=== PATIENT | male | born 1990 | race African-American/Black ===

== ENCOUNTER 2020-08-14 17:45 | Inpatient (IN) | payer SELFPAY ==
[~2020-08-14] VITALS: Ht 190.5 cm; Wt 140.2 kg
--- NOTE | 2020-08-14 18:12 | NUR ---
[facility] CALLED FOR TRANSPORT OF COVID SWAB TO MAIN ER.CALLED ER MAIN LAB AND SPOKE TO LADY NAMED SABAS, STATES UNDERSTANDING OF IMPORTANCE FOR RAPID COVID TESTING TO R/O TRANSFER.
[2020-08-14] MEDS ORDERED: ACETAMINOPHEN 325 MG TAB PO ONE (18:15)
--- NOTE | 2020-08-14 18:17 | NUR ---
XRAY DONE, PT MEDICATED.
[2020-08-14] MEDS ORDERED: SODIUM CHLORIDE 0.9% 1000ML 1,000 ML IV STA ×2 (18:35→18:40)
[2020-08-14] MEDS ORDERED: CEFEPIME 1GM/NS 0.9% 50 ML 50 ML IV STA (18:39)
[2020-08-14] MEDS ORDERED: METHYLPREDNISOLONE SOD SUCC 125 MG/2ML VIAL IV ONE (18:45)
[2020-08-14] MEDS ORDERED: AZITHROMYCIN 500MG/NS 250 ML 250 ML IV ONE (18:45)
[2020-08-14] MEDS ORDERED: CEFTRIAXONE SOD 1 GM/NS 50 ML 50 ML IV ONE (18:45)
[2020-08-14] MEDS ORDERED: METHYLPREDNISOLONE SOD SUCC 125 MG/2ML VIAL ONE ×2 (18:55→19:04)
[2020-08-14] MEDS ORDERED: SODIUM CHLORIDE 0.9% 1000ML 1,000 ML ONE (18:55)
[2020-08-14] MEDS ORDERED: AZITHROMYCIN ONE (18:55)
[2020-08-14] MEDS ORDERED: [UNRECOGNIZED DRUG - OTHER] ONE (18:55)
[2020-08-14] MEDS ORDERED: CEFEPIME 1GM/NS 0.9% 50 ML 50 ML IV ONE ×2 (18:55→19:05)
[2020-08-14] MEDS ORDERED: SODIUM CHLORIDE 0.9% 1000ML 2,000 ML ONE (19:05)
[2020-08-14] MEDS ORDERED: AZITHROMYCIN 500MG/NS 250 ML 250 ML ONE (19:05)
--- NOTE | 2020-08-14 19:14 | Emergency Department Note ---
History of Present Illnes History of Present Illness Chief Complaint: cough up mild blood/ cp when coughing History of Present Illness This is a 30 year old male. was doing well until 2 days ago then diarrhea, f/c, then cough/congestion then cp when coughing Historian: Patient, Family Member Arrival Mode: Car History limited by: condition of the patient (normal) Reel Assembler Required: No Onset (how long ago): day(s) (2) Location: see above Quality: sharpp Radiation: Reports non-radiation Severity: moderate Onset quality: gradual Duration (how long): day(s) (2) Timing of current episode: intermittent Progression: unchanged Chronicity: new Context: Denies recent illness, Denies recent surgery, Denies recent immobilization, Denies recent travel, Denies trauma/injury, Denies new medications, Denies hx of DVT/PE, Denies non-compliance w/ medications Relieving factors: rest Exacerbating factors: other (coughing) Associated symptoms: Reports chest pain, Reports cough, Reports fever/chills, Reports headaches, Reports malaise; Denies nausea/vomiting, Denies rash, Denies seizure, Denies shortness of breath, Denies syncope, Denies weakness Treatments prior to arrival: none Past Medical/Family History Physician Review I have reviewed the patient's past medical and family history. Any updates have been documented here. Past Medical History Recent Fever: Yes Clinical Suspicion of Infectio: Yes New/Unexplained Change in Ment: No Past Medical History: None Past Surgical History: None Social History Smoking Cessation: Current some day smoker Counseling Performed: No Alcohol Use: Occasional Any Illegal Drug Use: Yes (THC) Physically hurt or threatened: No Other Any Pre-Existing Lines (PICC,: No Review of Systems Review of Systems Constitutional: Reports as per HPI EENTM: Reports no symptoms Cardiovascular: Reports as per HPI Respiratory: Reports as per HPI Gastrointestinal: Reports no symptoms Genitourinary: Reports no symptoms Musculoskeletal: Reports no symptoms Integumentary: Reports no symptoms Neurological: Reports no symptoms Psychological: Reports no symptoms Endocrine: Reports no symptoms Hematological/Lymphatic: Reports no symptoms Review of other systems: All other systems negative Physical Exam Related Data Allergies: Coded Allergies: No Known Allergies (Unverified , 08/14/20) Triage Vital Signs Vital Signs Date Time Temp Pulse Resp B/P (MAP) Pulse Ox O2 Delivery O2 Flow Rate FiO2 11/22/20 18:01 102.2 115 22 166/82 96 Room Air Vital signs reviewed: Yes Physical Exam CONSTITUTIONAL Constitutional: Present well-developed, Present well-nourished HENT HENT: Present normocephalic, Present atraumatic, Present mucosae dry, Present nose normal HENT L/R: Present left ext ear normal, Present right ext ear normal EYES Eyes: Reports PERRL, Reports conjunctivae normal NECK Neck: Present ROM normal PULMONARY Pulmonary: Present effort normal, Present rhonchi CARDIOVASCULAR Cardiovascular: Present regular rhythm, Present heart sounds normal, Present capillary refill normal, Present tachycardia GASTROINTESTINAL Abdominal: Present soft, Present nontender, Present bowel sounds normal GENITOURINARY Genitourinary: Present exam deferred SKIN Skin: Present warm, Present dry MUSCULOSKELETAL Musculoskeletal: Present ROM normal NEUROLOGICAL Neurological: Present alert, Present oriented x 3, Present no gross motor or sensory deficits PSYCHOLOGICAL Psychological: Present mood/affect normal, Present judgement normal Results Laboratory Laboratory Laboratory Tests Test 08/14/20 18:00 Lab results reviewed: Yes Laboratory comments CBC NORMAL EXCEPT WBC 19, CMP NORMAL, CARDIAC ENZYMES NORMAL, BNP NORMAL, D DIMER ELEVATED Imaging Imaging results reviewed: Yes Impressions [place] [address] Patient Name: EDWIGE DOUGLASS MR #: [id number] : 1990 Age/Sex: 30/M Req #: [id number] Adm Physician: Ordered by: ROBERTO MCGOVERN Report #: [id number] Location: [facility] Room/Bed: Procedure: [id number] HOPD/CXR 1 VEW - HOPD Exam Date: 08/14/20 Exam Time: 1825 REPORT STATUS: Signed EXAMINATION: CXR 1 VEW - HOPD INDICATION: ^SOB COMPARISON: FINDINGS: Low lung volumes accentuates the heart size and central interstitial pulmonary markings. Hazy density at the right costophrenic angle. Left lung is clear. No pleural effusion. No pneumothorax. IMPRESSION: Low lung volumes. Hazy density at the right costophrenic angle could represent atelectasis or developing infection. Signed by: Naif Blanton MD on 08/14/2020 7:40 PM Dictated By: NAIF BLANTON MD 39 Transcribed By: JUDE on 08/14/201939 COPY TO: ROBERTO MCGOVERN~ Procedures 12 Lead ECG Interpretation ECG Interpretation : ECG: ECG 1 Reel Assembler: Interpreted by ED physician Date: Aug 14, 2020 Time: 19:59 Prior ECG tracings: reviewed Rhythm: sinus rhythm (NSR) Rate: normal BPM: 87 QRS axis: normal ST segments normal: Yes T waves normal: Yes Clinical Impression: normal ECG Critical Care Time Comments SPOKE TO DR SAWYER AT 2010HRS AND ACCEPTS ADMISSION OF PT Assessment & Plan Medical Decision Making MDM SEE BELOW Assessment & Plan Final Impression: (1) Sepsis (2) Pneumonia (3) Dehydration Depart Disposition: ADMITTED Last Vital Signs Date Time Temp Pulse Resp B/P (MAP) Pulse Ox O2 Delivery O2 Flow Rate FiO2 08/14/20 18:01 102.2 115 22 166/82 96 Room Air Medications in the ED Acetaminophen 975 mg ONCE ONCE PO Last administered on 08/14/20at 18:13; Admin Dose 975 MG; Start 08/14/20 at 18:15; Stop 08/14/20 at 18:16; Status DC Ceftriaxone Sodium 50 ml @ 100 mls/hr ONCE ONCE IV ; Start 08/14/20 at 18:45; Stop 08/14/20 at 18:40; Status DC Azithromycin 250 ml @ 250 mls/hr NOW ONCE IV ; Start 08/14/20 at 18:45; Stop 08/14/20 at 19:44; Status UNV Methylprednisolone Sodium Succinate 250 mg ONCE ONCE IV ; Start 08/14/20 at 18:45; Stop 08/14/20 at 18:46; Status DC Sodium Chloride 1,000 ml @ 1,000 mls/hr Q1H STAT IV ; Start 08/14/20 at 18:35; Stop 08/14/20 at 19:34 Cefepime HCl 50 ml @ 100 mls/hr ONCE STAT IV ; Start 08/14/20 at 18:39; Stop 08/14/20 at 19:08; Status UNV Sodium Chloride 1,000 ml @ 1,000 mls/hr Q1H STAT IV ; Start 08/14/20 at 18:40; Stop 08/14/20 at 19:39 Methylprednisolone Sodium Succinate 125 mg STK-MED ONCE .ROUTE ; Start 08/14/20 at 18:55; Stop 08/14/20 at 18:49; Status DC Sodium Chloride 2,000 ml @ ud STK-MED ONCE .ROUTE ; Start 08/14/20 at 18:55; Stop 08/14/20 at 18:49; Status DC Methylprednisolone Sodium Succinate 125 mg STK-MED ONCE .ROUTE ; Start 08/14/20 at 19:04; Stop 08/14/20 at 18:58; Status DC Sodium Chloride 2,000 ml @ ud STK-MED ONCE .ROUTE ; Start 08/14/20 at 19:05; Stop 08/14/20 at 18:58; Status DC ROBERTO MCGOVERN Aug 14, 2020 19:14
--- NOTE | 2020-08-14 19:35 | NUR ---
SEPSIS SHEET DONE AND ON CHART PER PROTOCOL.
--- NOTE | 2020-08-14 19:37 | NUR ---
ETA OF COVID RESULT 25 MINS PER [facility]ISS THAO IN LAB.
--- NOTE | 2020-08-14 19:43 | Diagnostic Imaging Report ---
EXAMINATION: CXR 1 W - HOP INDICATION: ^SOB COMPARISON: FINDINGS: Low lung volumes accentuates the heart size and central interstitial pulmonary markings. Hazy density at the right costophrenic angle. Left lung is clear. No pleural effusion. No pneumothorax. IMPRESSION: Low lung volumes. Hazy density at the right costophrenic angle could represent atelectasis or developing infection. Signed by: Bernabe Hernandez MD on 08/14/2020 7:40 PM
[2020-08-14] MEDS ORDERED: VANCOMYCIN 1GM/NS 250 ML 250 ML IV ONE ×2 (20:15→20:30)
[2020-08-14] MEDS ORDERED: IOPAMIDOL 370 MG/ML 200 ML INFUS..BTL INJ ONE (20:27)
[2020-08-14] MEDS ORDERED: SODIUM CHLORIDE 0.9% 50ML 50 ML ONE (20:27)
[2020-08-14] MEDS ORDERED: ONDANSETRON HCL INJ 2MG/ML 2ML 2 MG/ML VIAL IV PRN (20:30)
--- NOTE | 2020-08-14 20:30 | NUR ---
[facility] notified of transfer to [facility], eta 30-45 minutes
--- OUTSIDE RECORDS SUMMARY | 2020-08-14 20:58 | XMS REPORT | Continuity of Care Document ---
Author Author [facility] t Organization [facility] Address [address] [place] [address] Dr. Horn [address] [place] [phone] Phone Unavailable Care Team Providers Care Plug Assembler Name Role Phone Kristen MCGOVERN Attphys Unavailable Problems This patient has no known problems. Allergies, Adverse Reactions, Alerts This patient has no known allergies or adverse reactions. Medications This patient has no known medications. Procedures This patient has no known procedures. Results Test Description Test Time Test Comments Results Result Comments Source CXR 1 VEW - HOPD 2020-08-14 19:35:00 [facility] 1990 Sex: M [facility] [address] [place] [address] Patient Name: EDWIGE DOUGLASS MR #: [id number] : 1990 Age/Sex: 30/M Req #: [id number] [facility] Physician: Ordered by: ROBERTO MCGOVERN Report #: [id number] Location: [facility] Room/Bed: Procedure: [id number] [facility] Ex[facility] Date: 08/14/20 Exam Time: 1825 REPORT STATUS: Signed EXAMINATION: CXR 1 [facility] INDICATION: SOB COMPARISON: FINDINGS: Low lung volumes accentuates the heart size and central interstitial pulmonary markings. Hazy density at the right costophrenic angle. Left lung is clear. No pleural effusion. No pneumothorax. IMPRESSION: Low lung volumes. Hazy density at the right costophrenic angle could represent atelectasis or developing infection. Signed by: Naif Blanton MD on 08/14/2020 7:40 PM Dictated By: NAIF BLANTON MD 39 Transcribed By: JUDE on 08/14/201939 COPY TO: ROBERTO MCGOVERN CT Spine Lumbar w/o Contrast 2018-05-16 16:03:40 Patient: EDWIGE DOUGLASS Date/Time05/16/2018 15:49 CDTReason for ExamInjuryReportCT OF THE LUMBAR SPINE WITHOUT CONTRASTHISTORY: InjuryTECHNIQUE:Axial images of the lumbar spine were performed and reformatted into sagittal and coronal images. These were reviewed in bone and soft tissue windows. One or more of the following dose reduction techniques were used: Automated exposure control, adjustment of the mA and/or kV according to patient size, and/or utilization of iterative reconstruction technique.COMPARISON: None availableFINDINGS:There is an acute fracture of the right L1 transverse process (series 3, image 24). Vertebral body heights and disc spaces are preserved. No soft tissue abnormality is seen.Axial images:T12-L1: No significant abnormalityL1-L2: No significant abnormality.L2-L3: No significant abnormality.L3-L4: No significant abnormality.L4-L5: No significant abnormality.L5-S1: No significant abnormality.Incidental findings of hepatic steatosis and a small appendicolith are noted. There is no CT evidence of acute appendicitis.IMPRESSION:Minimally displaced fracture of the right L1 transverse process.Location: R16 Final Dictated by: MD Seals Adam FDictated DT/TM: 05/16/2018 3:57 pmSigned by: MD Selas Adam FSigned (Electronic Signature): 05/16/2018 4:03 pm XR Foot 2 Views Left 2018-05-16 15:44:38 Patient : EDWIGE DOUGLASS Date/Time05/16/2018 15:39 CDTReason for ExamInjuryReportXR Foot 2 Views LeftCLINICAL INFORMATION: InjuryCOMPARISONS: None available.FINDINGS:PA, lateral, and oblique images of the left foot were submitted.No acute fracture or malalignment is identified. The joint spaces are maintained. The soft tissues are unremarkable.IMPRESSION:No fracture or malalignment is identified.Location: R16 Final Dictated by: MD Seals Adam FDictated DT/TM: 05/16/2018 3:42 pmSigned by: MD Seals Adam FSigned (Electronic Signature): 05/16/2018 3:44 pm XR Tibia/Fibula Right 2018-05-16 15:43:40 Patien t: EDWIGE DOUGLASS Date/Time05/16/2018 15:39 CDTReason for ExamInjuryReportXR Tibia/Fibula RightCLINICAL INFORMATION: InjuryCOMPARISONS: None available.FINDINGS:AP and lateral images of the tibia and fibula were submitted.No acute fracture or malalignment is identified. Smooth cortical thickening is seen laterally at the distal tibial metadiaphysis. The soft tissues are unremarkable.IMPRESSION:No acute fracture or malalignment.Location: R16 Final Dictated by: MD Seals Adam FDictated DT/TM: 05/16/2018 3:41 pmSigned by: MD Seals Adam FSigned (Electronic Signature): 05/16/2018 3:43 pm
[2020-08-14] MEDS ORDERED: VANCOMYCIN HCL 2 GM in SODIUM CHLORIDE 0.9% 500ML 500 ML IV ONE (21:00)
[2020-08-14 21:45] VITALS: BP_SYST 128; BP_SYST 152; BP_DIAS 68; BP_DIAS 92
--- NOTE | 2020-08-14 22:03 | Diagnostic Imaging Report ---
EXAM: CT Chest WITH contrast (PE Protocol) INDICATION: ^cp/hemoptysis r/o pe ^20200814 ^2049 COMPARISON: None TECHNIQUE: Chest was scanned utilizing a multidetector helical scanner from the lung apex through the level of the diaphragm after administration of IV contrast. Thin section reconstructions were obtained with special concentration on the pulmonary arteries. Coronal and sagittal reformations were obtained. Pulmonary embolism protocol was performed. IV CONTRAST: 100 mL of Omnipaque 350 COMPLICATIONS: None FINDINGS: LINES/ TUBES: None. LUNGS AND AIRWAYS: Suboptimal evaluation for pulmonary emboli due to poor opacification of the pulmonary arteries. There is likely no large central pulmonary embolism. There is a 4.4 cm thick walled cavitary lesion at the left lower lobe. There is a 3.6 cm cavitary lesion at the right lower lobe. There is a 2.3 cm cavitary lesion in the superior segment of the right lower lobe. PLEURA: The pleural spaces are clear. HEART AND MEDIASTINUM: The thyroid gland is normal. No mediastinal, hilar or axillary lymphadenopathy. The heart is normal in size. There is no pericardial effusion. . Main pulmonary artery measures cm in diameter and the ascending aorta measures cm. UPPER ABDOMEN: Hepatic steatosis. BONES: The visualized bony thorax is within normal limits. SOFT TISSUES: Unremarkable. IMPRESSION: 1. Suboptimal evaluation for pulmonary emboli due to poor opacification of the pulmonary arteries. There is likely no large central pulmonary embolus. 2. Multiple bilateral lower lobe peripheral thick-walled cavitary lesions measuring up to 4.4 cm concerning for septic emboli. Other etiologies including sequelae of vasculitis, cavitary pneumonia, and malignancy also possible. Recommend follow-up until resolution. Signed by: Bernabe Hernandez MD on 08/14/2020 9:59 PM
--- NOTE | 2020-08-14 22:05 | NUR ---
Patient received via stretcher from ER. AAO x 4. Patient had no complaints of pain. Respirations even and non-labored. Admission history obtained. Initial physical assessment performed. IVF infusing at 150 cc/hr. Telemetry in place with continuous pulse oximetry. Patient oriented to room, call light and plan of care. Safety measures implemented. Patient instructed to call for assistance when needed. Call light within reach.
[2020-08-14] MEDS: FAMOTIDINE 20 MG/2 ML VIAL IV SCH (22:30)
[2020-08-14] MEDS ORDERED: VANCOMYCIN 1GM/NS 250 ML 500 ML ONE (22:42)
[2020-08-14] MEDS ORDERED: SODIUM CHLORIDE 0.9% 500ML 500 ML ONE (22:43)
[2020-08-14] MEDS: SODIUM CHLORIDE 0.9% 1000ML 1,000 ML IV SCH (23:33)
[2020-08-15] VITALS (7 sets, daily range): BP systolic 126–144; BP diastolic 68–85
[2020-08-15] MEDS ORDERED: SIMETHICONE 80 MG CHEW PO PRN (00:15)
[2020-08-15] MEDS ORDERED: CHLORASEPTIC SPRAY 177 ML BTL MM PRN (00:15)
[2020-08-15] MEDS ORDERED: DOCUSATE SODIUM 100 MG CAP PO PRN (00:15)
[2020-08-15] MEDS ORDERED: POLYETHYLENE GLYCOL 3350 17 GM PACK PO PRN (00:15)
[2020-08-15] MEDS ORDERED: HYDRALAZINE HCL 20 MG/ML VIAL IV PRN (00:15)
[2020-08-15] MEDS ORDERED: POTASSIUM CHLORIDE 20 MEQ TAB CR PO PRN (00:15)
[2020-08-15] MEDS ORDERED: MELATONIN 5 MG TABLET PO PRN (00:15)
[2020-08-15] MEDS ORDERED: DEXTROSE 50% SYRINGE 50 ML IV PRN (00:15)
[2020-08-15] MEDS: SODIUM CHLORIDE 0.9% 1000ML 1,000 ML IV SCH ×4 (06:03→21:05)
--- NOTE | 2020-08-15 06:34 | NUR ---
Dr. Guillen paged regarding "Routine Consult". Reason: PNA. Spoke to Татьяна. Awaiting call back.
--- NOTE | 2020-08-15 07:00 | NUR ---
ASSUMED CARE. AAOX3. ACYANOTIC. NO DISTRESS NOTED. CALL LIGHT IN REACH. SIDE RAILS UP X2. BED LOW AND LOCKED.
--- NOTE | 2020-08-15 07:00 | NUR ---
Patient resting comfortably. Shift report given to oncoming nurse regarding patient's status.
[2020-08-15 07:11] LABS: BASOPHILS % 0.2 % (0.0-1.0); HEMATOCRIT 44.9 % (38.2-49.6); LYMPHOCYTES # (AUTO) 1.2 (1.0-3.2); MEAN CORPUSCULAR HEMOGLOBIN 26.8 pg (28-32); MEAN CORPUSCULAR HGB CONC 33.4 g/dL (31-35); MEAN CORPUSCULAR VOLUME 80.2 fL (81-99); MONOCYTES # (AUTO) 0.6 (0.2-0.8); MONOCYTES % 3.6 % (4.4-11.3); NEUTROPHILS # (AUTO) 15.1 (2.1-6.9); NEUTROPHILS % 88.4 % (38.7-80.0); PLATELET COUNT 195 x10e3/uL (140-360)
[2020-08-15 07:29] LABS: CREATINE KINASE 400 IU/L (30-200)
[2020-08-15 07:50] LABS: ANION GAP 15.1 mmol/L (8-16); BLOOD UREA NITROGEN 10 mg/dL (7-26); BUN/CREATININE RATIO 10 (6-25); CALCIUM 8.8 mg/dL (8.4-10.2); CARBON DIOXIDE 23 mmol/L (22-29); CHLORIDE 105 mmol/L (98-107); CHOL/HDL RATIO 3.4 (3.9-4.7); CHOLESTEROL 125 MD/DL (0-199); CREATININE, SERUM 1.01 mg/dL (0.72-1.25); EST GLOMERULAR FILTRATION RATE > 60 ML/MIN (60-); GLUCOSE 170 mg/dL (74-118); HDL CHOLESTEROL 37 MG/DL (40-60); LDL CHOLESTEROL 73 MG/DL (60-130); POTASSIUM 4.1 mmol/L (3.5-5.1); SODIUM 139 mmol/L (136-145); TRIGLYCERIDES 77 MG/DL (0-149)
[2020-08-15] MEDS: CEFEPIME 1GM/NS 0.9% 50 ML 50 ML IV SCH ×2 (07:59→21:05)
[2020-08-15] MEDS: PANTOPRAZOLE SOD 40 MG TABEC PO SCH (07:59)
[2020-08-15] MEDS: FAMOTIDINE 20 MG/2 ML VIAL IV SCH ×2 (09:32→21:05)
--- NOTE | 2020-08-15 12:30 | NUR ---
GAVE PACKET OF INFORMATION WITH COMM[facility]ITY [employer] FOR ASSISTANCE WITH LOW TO NO INCOME TO PATIENT. RESOURCES THAT PATIENT MAY BE ABLE TO FOLLOW UP UPON DISCHARGE. PT EDUCATED ON EACH RESOURCE AND UNDERSTANDING HOW TO FOLLOW UP TO SEE IF QUALIFIED FOR EACH RESOURCE.
[2020-08-15] MEDS: VANCOMYCIN 1GM/NS 250 ML 250 ML IV SCH ×2 (12:58→23:44)
--- NOTE | 2020-08-15 13:11 | NUR ---
PATIENT STATES, "FROM THIS POINT, DO NOT GIVE ANYMORE INFORMATION TO MY MOM ABOUT ME. MY DAD JUST AND I DO NOT WANT TO STRESS HER."
[2020-08-15 15:56] LABS: CREATINE KINASE 592 IU/L (30-200)
[2020-08-15] MEDS: ENOXAPARIN SOD INJ 40 MG/0.4 ML SYR SC SCH (16:45)
--- NOTE | 2020-08-15 17:06 | NUR ---
INFECTIOUS DISEASE CONSULT NOTE DR. NEHEMIAH BARRIOS HPI: 30 year old male, was doing well until 2 days ago then diarrhea, f/c, then cough/congestion then cp when coughing. He was found to have PNA upon admission. COVID PCR negative x1. CTA concerning for atypical pna or malignancy. Workup continuing SOCIAL HX: smoker, denies drug use FAMILY HX: htn PMH: PER HPI ROS: +fatigue, +weakness ALL 14 POINT ROS NEG UNLESS NOTED LABS: REVIEWED RADIOLOGY: REVIEWED PHYSICAL EXAM: GENERAL: alert, awake HEENT: normocephalic, atraumatic CV: s1, s2, no s3, s4 CHEST: rhonchi, symmetric expansion ABD: soft, non-tender, non distended EXT: moves all, no joint swelling PSYCH: intact IMPRESSION: Pneumonia present on admission Leukocytosis sepsis present on admission PLAN: work-up pending labs ordered IV ABT as ordered thank you for the consult Dinorah Huff MSN, WATCH INSPECTOR FINAL MOVEMENT, AGACNP-BC examined by Nehemiah Barrios M.D
[2020-08-15] MEDS: ALBUTEROL/IPRATROPIUM 3 ML NEB NEB PRN (20:30)
--- NOTE | 2020-08-15 20:56 | NUR ---
RECEIVED PT N BED AOX3 RESPIRATIONSA RE EVEN AND UNLABORED TELE SHOWS SR RT AC 20 G NS AT 150CC/HR CALL LIGHT WITH IN REACH ,CONTINUE TO MONITOR N
[2020-08-15] MEDS: ACETAMINOPHEN 325 MG TAB PO PRN (21:05)
[2020-08-15] MEDS: GUAIFENESIN/CODEINE 10 ML CUP PO PRN (21:50)
--- NOTE | 2020-08-15 23:35 | NUR ---
REPORT GIVEN TO ANOTHER NURSE
--- NOTE | 2020-08-15 23:48 | NUR ---
CALL PLACED OUT TO DR BARRIOS REGARDING TEMPERATURE.
[2020-08-16] VITALS (8 sets, daily range): BP systolic 129–151; BP diastolic 62–94
--- NOTE | 2020-08-16 00:10 | NUR ---
new orders rc'graham masterson and von jo.
--- NOTE | 2020-08-16 03:03 | History and Physical ---
CHIEF COMPLAINT: Cough, congestion, fever. HISTORY OF PRESENT ILLNESS: A 30-year-old -[place] male, who presented at the [facility] emergency room with complaints of cough, congestion, and concerns of fever at home, ongoing for the last 3 days. He reports three days ago, he noticed that he was having some cough and congestion and felt that he was short of breath. He apparently went to an Urgent Care, was told that he had pneumonia, but somehow not sure how he ended up at the [facility] ER, in which he reports worsening symptoms and came in to [facility] for further evaluation and management. CTA of the chest consistent with pneumonia, but also evidence of some septic emboli, which is concerning prompting ID consultation. The patient during my evaluation, was awake, alert, and oriented. He was stable. His vital signs were stable; in fact, he was not on any oxygen when I evaluated him. REVIEW OF SYSTEMS: Pertinent positive, cough, congestion, fever, shortness of breath. The rest of 14-point review of systems are reviewed with the patient and are negative. ALLERGIES: NO KNOWN DRUG ALLERGIES. HOME MEDICATIONS: None. PAST MEDICAL HISTORY: Reports none. FAMILY HISTORY: Hypertension, diabetes. PAST SURGICAL HISTORY: Reports none. SOCIAL HISTORY: He reports smoking about a half a pack a week of cigarettes. No alcohol. No drugs what he reports. PHYSICAL EXAMINATION: VITAL SIGNS: Temperature was 97.8, pulse 74, respiratory rate is 18, blood pressure 126/82, saturating 98% on room air. GENERAL: Not in acute distress. Alert and oriented x3. Cooperative on examination. HEENT: Head, normocephalic, atraumatic. Eyes; pupils are equal, round, and reactive to light bilaterally. Extraocular movements intact bilaterally. Throat, no evidence of erythema or exudates in the posterior pharynx. Has poor dentition. NECK: Supple. Good range of motion throughout. PULMONARY: Clear to auscultation bilaterally. No wheezing, rales, or rhonchi. No crackles appreciated. CARDIOVASCULAR: Positive S1 and S2. No murmurs, rubs, or gallops appreciated. ABDOMEN: Soft, nondistended, and nontender to palpation. Bowel sounds present. . SKIN: Intact. Warm to touch. Good cap refill. PSYCHIATRIC: Normal affect and mood. EXTREMITIES: No edema. Good range of motion throughout. LABORATORY DATA: Labs show white count 17, hemoglobin 15, hematocrit is 44.9, platelets of 195. Chemistry; sodium 139, potassium 4.1, chloride 105, bicarb 22, anion gap of 15, BUN is 10, creatinine is 1, glucose 170, calcium is 8.8, magnesium 2. Troponins were all negative. His CK was 592. LDL was 73. Coronavirus not detected. MICROBIOLOGY: Blood cultures are pending. IMAGING STUDIES: CTA of the chest, suboptimal evaluation, pulmonary emboli due to opacification of pulmonary arteries. There is likely no large central pulmonary embolism. Multiple bilateral lower lobe peripheral thick-walled cavitary lesions, measuring up to 4.4 cm, concerning for septic emboli. Other etiologies include sequela of vasculitis, cavitary pneumonia, and malignancy also possibility. Chest x-ray, lower lobe, hazy density in the right costophrenic angle could represent atelectasis or developing pneumonia. IMPRESSION: 1. Concerns for community-acquired pneumonia. 2. Fever, cough, and congestion. 3. Secondary to #1. 4. Concerns for septic emboli, infectious? PLAN: At this time, continue with IV antibiotics with cefepime and vancomycin. He denies any drug abuse; in fact, no IV drug abuse. He states he was doing fine. He does not work currently. He is otherwise doing well. Continue with broad regimen of IV antibiotics, pain control, and neb treatments p.r.n. I did consult with ID with further assistance needed on this case. There was a prelim report on 2D echo that showed no evidence of any vegetations. Await final cardiology read from the consultants. Lovenox for DVT prophylaxis. Plan of care discussed with the patient and consultants. MD BISHNU Hensley/MODL /[id number]
[2020-08-16] MEDS: ALBUTEROL/IPRATROPIUM 3 ML NEB NEB PRN (03:50)
[2020-08-16] MEDS: SODIUM CHLORIDE 0.9% 1000ML 1,000 ML IV SCH ×3 (05:01→21:57)
[2020-08-16 05:56] LABS: BASOPHILS % 0.2 % (0.0-1.0); EOSINOPHILS % 0.1 % (0.0-6.0); HEMATOCRIT 40.3 % (38.2-49.6); HEMOGLOBIN 13.7 g/dL (14.0-18.0); LYMPHOCYTES # (AUTO) 1.9 (1.0-3.2); LYMPHOCYTES % 12.4 % (18.0-39.1); MEAN CORPUSCULAR HEMOGLOBIN 27.2 pg (28-32); MONOCYTES # (AUTO) 1.4 (0.2-0.8); MONOCYTES % 9.5 % (4.4-11.3); NEUTROPHILS # (AUTO) 11.6 (2.1-6.9); NEUTROPHILS % 76.7 % (38.7-80.0); PLATELET COUNT 213 x10e3/uL (140-360); RED BLOOD COUNT 5.04 x10e6/uL (4.3-5.7); RED CELL DISTRIBUTION WIDTH 14.9 % (11.7-14.4)
[2020-08-16] MEDS: GUAIFENESIN/CODEINE 10 ML CUP PO PRN ×4 (06:11→23:34)
[2020-08-16] MEDS: ACETAMINOPHEN 325 MG TAB PO PRN ×2 (06:11→13:09)
[2020-08-16 06:19] LABS: ALANINE AMINOTRANSFERASE 60 IU/L (0-55); ALBUMIN/GLOBULIN RATIO 0.7 (0.8-2.0); ALKALINE PHOSPHATASE 50 IU/L (40-150); ANION GAP 12.6 mmol/L (8-16); BLOOD UREA NITROGEN 12 mg/dL (7-26); BUN/CREATININE RATIO 12 (6-25); CALCIUM 8.2 mg/dL (8.4-10.2); CARBON DIOXIDE 24 mmol/L (22-29); CHLORIDE 105 mmol/L (98-107); EST GLOMERULAR FILTRATION RATE > 60 ML/MIN (60-); GLUCOSE 142 mg/dL (74-118); POTASSIUM 3.6 mmol/L (3.5-5.1); SODIUM 138 mmol/L (136-145)
[2020-08-16 06:31] LABS: THYROID STIMULATING HORMONE 2.512 uIU/mL (0.350-4.940)
--- NOTE | 2020-08-16 07:10 | NUR ---
ER NURSE AT BEDSIDE TO SWAB FOR FLU AND COVID.
[2020-08-16 08:01] LABS: CREATINE KINASE 1149 IU/L (30-200)
[2020-08-16] MEDS: PANTOPRAZOLE SOD 40 MG TABEC PO SCH (08:13)
[2020-08-16] MEDS: CEFEPIME 1GM/NS 0.9% 50 ML 50 ML IV SCH ×2 (08:13→20:46)
[2020-08-16] MEDS: FAMOTIDINE 20 MG/2 ML VIAL IV SCH ×2 (08:13→20:46)
--- NOTE | 2020-08-16 08:30 | NUR ---
CALL RECEIVED FROM LAB REGARDING FLU TEST ORDER. PAGED CLARISSE ACUÑA REGARDING THE SAME.
[2020-08-16 11:01] LABS: BILIRUBIN,URINE NEGATIVE (NEGATIVE); CLARITY,URINE CLEAR (CLEAR); COLOR,URINE YELLOW (YELLOW); KETONES,URINE NEGATIVE (NEGATIVE); LEUKOCYTE ESTERASE ,URINE NEGATIVE (NEGATIVE); NITRITE,URINE NEGATIVE (NEGATIVE); PROTEIN,URINE DIPSTICK TRACE (NEGATIVE); URINE UROBILINOGEN 1 mg/dL (0.2 - 1)
[2020-08-16 11:03] LABS: BACTERIA,URINE RARE /HPF; RBC,URINE 0-5 /HPF (0-5); WBC,URINE (MAN) 0-5 /HPF (0-5)
[2020-08-16 11:04] LABS: AMORPHOUS SEDIMENT,URINE RARE (FEW); MUCUS,URINE FEW (RARE)
[2020-08-16 11:38] LABS: HIV 1&2 AB SCREEN NON-REACTIVE (NONREACTIVE)
--- NOTE | 2020-08-16 12:30 | Consultation ---
DATE OF CONSULTATION: REASON FOR CONSULTATION: Pneumonia. HISTORY OF PRESENT ILLNESS: This is a 30-year-old male, comes in with fever and chills for 4 days. The patient comes to the emergency room, where he was admitted. PAST MEDICAL HISTORY: He denies. PAST SURGICAL HISTORY: Denies. ALLERGIES: NKA. SOCIAL HISTORY: Does not smoke. No drug abuse or alcohol abuse. The patient is telling me that he is coughing up some dark sputum . LABORATORY DATA: His chest CTA was done. No large embolism. Multiple bilateral lobe cavitary lesion. Blood cultures, no growth. COVID-19 was negative. Influenza is negative. IMPRESSION: Sepsis on admission, pneumonia, community-acquired. Currently on cefepime and vancomycin. Await blood cultures. Obtain sputum cultures. Obtain HIV. We will follow. MD TOVA Lockhart/CLEMENT /[id number]
[2020-08-16] MEDS: VANCOMYCIN 1GM/NS 250 ML 250 ML IV SCH ×2 (13:05→23:33)
[2020-08-16] MEDS: ENOXAPARIN SOD INJ 40 MG/0.4 ML SYR SC SCH (16:11)
--- NOTE | 2020-08-16 16:32 | Consultation ---
DATE OF CONSULTATION: Pulmonary Critical Care Consultation CHIEF COMPLAINT: Fevers and cough. HISTORY OF PRESENT ILLNESS: The patient is a 30-year-old man. He has a history of some fever for the past several days to week. He notes a cough productive of yellowish phlegm. He denies any weight loss. He has not had chest pain. He came to the emergency department and was found to have leukocytosis and fever. A CT scan of the chest showed multiple cavitary nodules, suggestive of pneumonia or septic emboli. PAST MEDICAL HISTORY: None. PAST SURGICAL HISTORY: No prior surgeries. FAMILY HISTORY: Hypertension and diabetes. ALLERGIES: NO KNOWN DRUG ALLERGIES. SOCIAL HISTORY: The patient smokes small amount of cigarettes. He only occasionally drinks. He does not use any IV drugs. He did travel to [place] on a [employer] cruise in 2018. He is not aware of any other travel. He denies any exposure to tuberculosis. REVIEW OF SYSTEMS: The patient has fevers intermittently for the past week. He is not having any headache. He has no neck pain. He is not having any chest pain. He does report some cough and minimal dyspnea. He has no abdominal pain. He has no nausea or vomiting. He has no leg edema. PHYSICAL EXAMINATION: VITAL SIGNS: The blood pressure is 126/82, saturation is 98% on room air, and the pulse is 74. HEENT: Shows no facial swelling or erythema. LYMPHATIC: Shows no submandibular, cervical, or supraclavicular adenopathy. CARDIAC: Reveals regular rate and rhythm with normal S1 and S2. LUNGS: Auscultation of lungs reveals crackles and rhonchi bilaterally. There is no wheezing. ABDOMEN: Soft and nontender. There is no rebound or guarding. EXTREMITIES: Show 1 to 2+ leg edema. LABORATORY DATA: The BUN to creatinine ratio is 12 to 1. Other electrolytes are significant for potassium of 3.6. AST is 35 and the ALT is 60. Albumin is 3. RADIOGRAPHIC DATA: CT scan of the chest shows multiple bilateral lower lobe peripheral thick-walled cavitary lesions measuring up to 4.4 cm. They are concerning for cavitary pneumonia or septic emboli. IMPRESSION: 1. Multifocal pneumonia with sepsis, present on admission. 2. Leukocytosis. PLAN: 1. Continue current antibiotics. 2. Await culture results. 3. ID consultation. MD ZENIA Krishnamurthy/CLEMENT /[id number]
--- NOTE | 2020-08-16 19:00 | NUR ---
BEDSIDE SHIFT REPORT GIVEN TO THE HOP PICKER RN. PT DENIED FURTHER NEEDS.
[2020-08-17] VITALS (8 sets, daily range): BP systolic 134–159; BP diastolic 72–99
[2020-08-17] MEDS: ACETAMINOPHEN 325 MG TAB PO PRN ×2 (04:59→14:26)
[2020-08-17] MEDS: SODIUM CHLORIDE 0.9% 1000ML 1,000 ML IV SCH ×5 (05:06→16:57)
--- NOTE | 2020-08-17 07:00 | NUR ---
BEDSIDE SHIFT REPORT RECEIVED FROM THE AGRICULTURE SALES ACCOUNT MANAGER RN. EDUCATED PT ABOUT FALL PRECAUTIONS. PT VERBALIZED UNDERSTANDING. BED IS LOW AND LOCKED. SIDE RAILS X2. CALL LIGHT WITH IN EASY REACH. ALL SAFETY MEASURES IN PLACE. PT DENIES NEEDS AT THIS TIME.
[2020-08-17] MEDS: PANTOPRAZOLE SOD 40 MG TABEC PO SCH (08:30)
[2020-08-17] MEDS: CEFEPIME 1GM/NS 0.9% 50 ML 50 ML IV SCH ×2 (08:30→20:15)
--- NOTE | 2020-08-17 08:59 | Progress Note ---
DATE: 08/16/2020 Medicine Progress Note SUBJECTIVE: The patient is sitting at the edge of the bed, was doing well, actually alert, oriented x3. He has no complaints. No evidence of any fever when I evaluated him. His T-max is 99.7. PHYSICAL EXAMINATION: VITAL SIGNS: Temperature 99.7, T-max 99.7, pulse 84, respiratory rate 19, pressure 142/91, pulse ox 94% on room air. GENERAL: Not in acute distress, alert, oriented x3. He is cooperative on examination. PULMONARY: Clear to auscultation bilaterally. No wheezing, rales, or rhonchi. No crackles appreciated. CARDIOVASCULAR: Positive S1, S2. No murmurs, rubs, or gallops appreciated. ABDOMEN: Soft, nondistended, nontender to palpation. Bowel sounds present. MUSCULOSKELETAL: Strength 5/5 throughout. NEUROLOGICAL: Alert, oriented x3. LABORATORY DATA: Show white count was 15, hemoglobin 13, hematocrit is 40, platelets of 213. Chemistry reviewed, stable. Immunology studies are still pending. Serologies, HIV nonreactive, influenza negative. Urine Legionella, mycoplasma all pending. Coronavirus not detected. Microbiology; blood cultures one of two shows gram-positive cocci in clusters. Sputum cultures are pending. IMAGING STUDIES: Nothing new. A 2D echo has been ordered. IMPRESSION: 1. Concern for multifocal pneumonia. 2. Fever, cough and congestion. 3. Concern for septic emboli, infectious? PLAN: At this time, I ordered serologies c-ANCA, p-ANCA and complements which were very helpful. I did consult with Pulmonary to come and evaluate and treat if the patient needs a bronchoscopy at a later date. Sputum cultures, otherwise cultures were all pending. He is on IV antibiotics. He is being managed by ID. There was a prelim 2D echo report did show no evidence of vegetations. Await final read from Cardiology. Lovenox for DVT prophylaxis. Discussed plan of care with sql server consultant. MD BISHNU Hensley/CLEMENT /[id number]
[2020-08-17] MEDS: FAMOTIDINE 20 MG/2 ML VIAL IV SCH ×2 (09:16→21:00)
[2020-08-17] MEDS: GUAIFENESIN/CODEINE 10 ML CUP PO PRN ×3 (09:16→20:00)
[2020-08-17 09:29] LABS: BASOPHILS # (AUTO) 0.1 (0.0-0.1); BASOPHILS % 0.5 % (0.0-1.0); EOSINOPHILS # (AUTO) 0.2 (0.0-0.4); EOSINOPHILS % 1.2 % (0.0-6.0); HEMATOCRIT 41.8 % (38.2-49.6); HEMOGLOBIN 14.1 g/dL (14.0-18.0); LYMPHOCYTES # (AUTO) 2.2 (1.0-3.2); LYMPHOCYTES % 15.2 % (18.0-39.1); MEAN CORPUSCULAR HEMOGLOBIN 27.2 pg (28-32); MEAN CORPUSCULAR HGB CONC 33.7 g/dL (31-35); MEAN CORPUSCULAR VOLUME 80.7 fL (81-99); MONOCYTES # (AUTO) 1.5 (0.2-0.8); MONOCYTES % 10.1 % (4.4-11.3); NEUTROPHILS # (AUTO) 10.4 (2.1-6.9); NEUTROPHILS % 71.4 % (38.7-80.0); PLATELET COUNT 244 x10e3/uL (140-360); RED BLOOD COUNT 5.18 x10e6/uL (4.3-5.7); RED CELL DISTRIBUTION WIDTH 14.9 % (11.7-14.4)
[2020-08-17 09:46] LABS: ANION GAP 12.4 mmol/L (8-16); BLOOD UREA NITROGEN 7 mg/dL (7-26); BUN/CREATININE RATIO 7 (6-25); CALCIUM 8.7 mg/dL (8.4-10.2); CARBON DIOXIDE 25 mmol/L (22-29); CHLORIDE 103 mmol/L (98-107); CREATININE, SERUM 0.97 mg/dL (0.72-1.25); EST GLOMERULAR FILTRATION RATE > 60 ML/MIN (60-); GLUCOSE 142 mg/dL (74-118); POTASSIUM 3.4 mmol/L (3.5-5.1); SODIUM 137 mmol/L (136-145)
[2020-08-17] MEDS: VANCOMYCIN 1GM/NS 250 ML 250 ML IV SCH (10:42)
[2020-08-17] MEDS ORDERED: POTASSIUM CHLORIDE 10MEQ EA PO ONE (11:00)
[2020-08-17] MEDS: ENOXAPARIN SOD INJ 40 MG/0.4 ML SYR SC SCH (16:57)
--- NOTE | 2020-08-17 17:52 | Progress Note ---
DATE: SUBJECTIVE: Mr. Cardenas is feeling better. OBJECTIVE: VITAL SIGNS: Stable, afebrile. HEENT: He is not icteric. NECK: Supple. CHEST: Crackles. HEART: S1 and S2. ABDOMEN: Soft. LABORATORY DATA: The blood culture showing gram-positive cocci, so far no growth. IMPRESSION: 1. Bacteremia, probably contamination. 2. Pneumonia, present on admission, community-acquired. Can change him to oral Levaquin 500 mg p.o. daily for 14 days. Could be discharged home. Follow up as an outpatient. MD TOVA Lockhart/CLEMENT /[id number]
--- NOTE | 2020-08-17 19:35 | NUR ---
Bedside rounds completed with morning nurse. Pt alert and oriented, sitting on side of bed, denies pain at this time. at bedside. Call light within reach. Bed low and locked.
--- NOTE | 2020-08-17 19:41 | NUR ---
BEDSIDE SHIFT REPORT GIVEN TO THE STOCK CLERK RN. PT DENIED FURTHER NEEDS.
[2020-08-17] MEDS: IBUPROFEN 600 MG TAB PO PRN ×2 (20:00→21:00)
[2020-08-18] VITALS (9 sets, daily range): BP systolic 126–151; BP diastolic 70–99
[2020-08-18] MEDS: VANCOMYCIN 1GM/NS 250 ML 250 ML IV SCH ×3 (00:08→23:45)
--- NOTE | 2020-08-18 00:39 | Progress Note ---
DATE: 08/17/2020 Medicine Progress Note SUBJECTIVE: The patient reportedly is doing much better today with no complaints. He had a T-max of 100.2. OBJECTIVE: VITAL SIGNS: Temperature is 99.8, T-max 100.2, pulse 78, respirations 18, blood pressure 150/92, pulse oximetry 99% on room air. GENERAL: Not in acute distress, alert and oriented x3. PULMONARY: Clear to auscultation bilaterally. No wheezing, rales, or rhonchi. No crackles appreciated. CARDIOVASCULAR: Positive S1, S2. No murmurs, rubs, or gallops appreciated. ABDOMEN: Soft, nondistended, nontender to palpation. Bowel sounds present. MUSCULOSKELETAL: Strength 5/5 throughout. NEUROLOGICAL: Cranial nerves 2 to 12 grossly intact. SKIN: Intact, warm to touch. Good cap refill. PSYCHIATRIC: Normal affect and mood. LABORATORY FINDINGS: Show white count 14.5, hemoglobin 14, hematocrit is 41, platelets of 244. Chemistries reviewed, stable. Cultures are growing one of two coag-negative staph, likely to be a contaminant. Sputum cultures are pending. IMAGING STUDIES: None. IMPRESSION: 1. Multifocal pneumonia. 2. Fever, cough and congestion. 3. Concerns for septic emboli - negative 2D echo preliminary report. PLAN: At this time, 2D echo preliminary report was found to be no evidence of any vegetation. Continue with broad-spectrum IV antibiotic therapy. C-ANCA, p-ANCA, RANDALL are all pending, complement is not performed. Continue to monitor cultures. Continue with IV antibiotic therapy. ID is following. It seems that the patient likely had a significant multifocal pneumonia in which we will go ahead and treat with antibiotics. I spoke with ID, recommends oral Levaquin for 14 days. Per ID, bacteremia likely contaminant. He will follow up as an outpatient. MD BISHNU Hensley/MODL /[id number]
[2020-08-18] MEDS: GUAIFENESIN/CODEINE 10 ML CUP PO PRN ×4 (01:30→22:30)
[2020-08-18] MEDS: SODIUM CHLORIDE 0.9% 1000ML 1,000 ML IV SCH ×4 (05:06→19:50)
[2020-08-18 05:46] LABS: BASOPHILS # (AUTO) 0.1 (0.0-0.1); BASOPHILS % 0.5 % (0.0-1.0); EOSINOPHILS # (AUTO) 0.3 (0.0-0.4); HEMATOCRIT 44.8 % (38.2-49.6); HEMOGLOBIN 15.3 g/dL (14.0-18.0); LYMPHOCYTES # (AUTO) 2.6 (1.0-3.2); MEAN CORPUSCULAR HEMOGLOBIN 27.6 pg (28-32); MEAN CORPUSCULAR HGB CONC 34.2 g/dL (31-35); MEAN CORPUSCULAR VOLUME 80.9 fL (81-99); MONOCYTES # (AUTO) 1.4 (0.2-0.8); MONOCYTES % 9.4 % (4.4-11.3); NEUTROPHILS # (AUTO) 10.5 (2.1-6.9); NEUTROPHILS % 68.9 % (38.7-80.0); PLATELET COUNT 276 x10e3/uL (140-360); RED BLOOD COUNT 5.54 x10e6/uL (4.3-5.7)
[2020-08-18 06:07] LABS: ANION GAP 13.8 mmol/L (8-16); BLOOD UREA NITROGEN 7 mg/dL (7-26); BUN/CREATININE RATIO 7 (6-25); CALCIUM 9.4 mg/dL (8.4-10.2); CARBON DIOXIDE 26 mmol/L (22-29); CHLORIDE 103 mmol/L (98-107); CREATININE, SERUM 0.94 mg/dL (0.72-1.25); EST GLOMERULAR FILTRATION RATE > 60 ML/MIN (60-); GLUCOSE 107 mg/dL (74-118); POTASSIUM 3.8 mmol/L (3.5-5.1); SODIUM 139 mmol/L (136-145)
--- NOTE | 2020-08-18 08:35 | Progress Note ---
DATE: Infectious Disease SUBJECTIVE: The patient is seen, evaluated, available labs and notes reviewed. Discussed with the nurse in the room uneventful night. The patient feels much better. REVIEW OF SYSTEMS: Last night was the first night. He did not have any fever, chills, or sweats. He feels much better. Sign and symptoms resolved. No nausea, vomiting, fever, chills, chest pain, shortness of breath. Appetite is good. PHYSICAL EXAMINATION: VITAL SIGNS: Temperature 98.3, which has resolved and improved from 102.2, pulse 73, respiration 20, blood pressure 129/73. GENERAL: Awake and alert, very pleasant, no acute distress. CV: S1-S2. CHEST: Equal expansion, clear to auscultation. No acute distress. ABDOMEN: Soft, nontender. No distention. HEENT: Moist. No pallor. No JVD. EXTREMITIES: Moves all. No acute distress. LABORATORY STUDIES: White count of 15.24, hemoglobin 15.3, platelet 276. Sodium 139, potassium 3.8, creatinine 0.94. Serology: COVID-19, PCR not detected. HIV nonreactive. Influenza type A and B negative. Urine Legionella antigen and mycoplasma pending. RANDALL screen is pending. Toxicology; vancomycin trough is 3.1. MICROBIOLOGY: Blood culture one set showed coag-negative staph, another set is clean. Sputum culture for AFB pending, however, Gram stain showed no organism, nose viral culture is pending. RADIOLOGY STUDIES: No new radiology studies available. ASSESSMENT AND PLAN: 1. Bacteremia, most likely contaminated. 2. Pneumonia, community acquired. 3. Fever and chills, resolved. 4. Remains on vancomycin and cefepime. From ID point of view, the patient can be converted to Levaquin 500 mg p.o. daily for total of 14 days and discharge and follow up as an outpatient. Overall, clinically afebrile, asymptomatic. Further management of this patient is based on daily findings on laboratory and physical examination. Please refer to Dr. Guillen's note on 08/17/2020. Please refer to chart for more information. Dictated by Job Liu PA-C (Al) Deacon Guillen MD /MODL /[id number]
[2020-08-18] MEDS: FAMOTIDINE 20 MG/2 ML VIAL IV SCH ×2 (08:52→21:00)
[2020-08-18] MEDS: CEFEPIME 1GM/NS 0.9% 50 ML 50 ML IV SCH ×2 (08:52→20:25)
[2020-08-18] MEDS: PANTOPRAZOLE SOD 40 MG TABEC PO SCH (08:52)
--- NOTE | 2020-08-18 11:46 | Progress Note ---
DATE: SUBJECTIVE: The patient is eager to go home. He does not have any new complaints. PHYSICAL EXAMINATION: VITAL SIGNS: Blood pressure is 150/99 and pulse is 75. HEENT: Shows no facial swelling or erythema. LYMPHATIC: Shows no submandibular, cervical or supraclavicular adenopathy. CARDIAC: Reveals regular rate and rhythm with normal S1 and S2. LABORATORY DATA: White blood cell count is 15.2, hemoglobin is 15.3, and platelet count is 276. BUN to creatinine ratio is normal. Other electrolytes are within normal limits. IMPRESSION: 1. Multifocal bacterial pneumonia. 2. Leukocytosis. PLAN: 1. Continue current antibiotics. 2. Continue to monitor white blood cell count. 3. The patient will need a repeat CT scan in four weeks. Provided the cavitary lesions are improving with antibiotic therapy, no biopsy would be required. If the radiographic lesions do not improve with therapy, then a CT-guided biopsy is indicated. MD ZENIA Krishnamurthy/CLEMENT /[id number]
[2020-08-18] MEDS: ENOXAPARIN SOD INJ 40 MG/0.4 ML SYR SC SCH (17:00)
--- NOTE | 2020-08-18 19:29 | NUR ---
walking rounds complete, report given to oncoming nurse.
--- NOTE | 2020-08-18 23:53 | Progress Note ---
DATE: 08/18/2020 SUBJECTIVE: The patient reportedly is doing very well today with no complaints. He has been afebrile. OBJECTIVE: VITAL SIGNS: His temperature is 98.7, pulse 82, respiratory rate is 18, blood pressure 142/70, pulse ox 98% on room air. GENERAL: No acute distress. Alert and oriented x3. He is cooperative on exam. PULMONARY: Clear to auscultation bilaterally. No wheezing, rales, or rhonchi. No crackles appreciated. CARDIOVASCULAR: Positive S1, S2. No murmurs, rubs, or gallops appreciated. ABDOMEN: Soft, nondistended, nontender to palpation. Bowel sounds present. MUSCULOSKELETAL: Strength is 5/5 throughout. NEUROLOGICAL: Cranial nerves 2 through 12 grossly intact. SKIN: Intact. Warm to touch. Good cap refill. LABORATORY DATA: Show white count was 15.2, hemoglobin 15, hematocrit 44, platelets 276. Chemistry; sodium 139, potassium 3.8, chloride 103, bicarb 26, anion gap of 13, BUN is 7, creatinine 0.94, calcium is 9.4. P-ANCA and C-ANCA all negative, complements. Serologies, mycoplasma pending. Influenza negative. HIV negative. Coronavirus nondetected. MICROBIOLOGY: One of two blood culture shows to be coag-negative staph likely contaminant. Sputum cultures, no growth. Acid-fast bacilli is pending. Viral cultures are pending. IMAGING STUDIES: Nothing new. IMPRESSION: 1. Multifocal pneumonia with underlying fever cough and congestion-improving. 2. Coag-negative Staphylococcus bacteremia, contaminant. PLAN: At this time, continue with aggressive IV antibiotic therapy. A 2D echo was negative for any kind of vegetations. The patient is now afebrile for more than 48 hours. He has been cleared for discharge by Pulmonary and ID. His white count is still elevated, which I would like to monitor to make sure it is normal before being discharged. He is currently doing well. Per ID, the patient can be discharged on 2 weeks of oral Levaquin. MD BISHNU Hensley/MODL /[id number]
[2020-08-19] VITALS: BP 119/78
[2020-08-19] MEDS: IBUPROFEN 600 MG TAB PO PRN ×2 (00:25→17:35)
[2020-08-19 05:14] VITALS: BP 110/59
[2020-08-19 05:37] LABS: BASOPHILS # (AUTO) 0.1 (0.0-0.1); BASOPHILS % 0.4 % (0.0-1.0); EOSINOPHILS # (AUTO) 0.2 (0.0-0.4); EOSINOPHILS % 1.6 % (0.0-6.0); HEMATOCRIT 42.9 % (38.2-49.6); HEMOGLOBIN 14.3 g/dL (14.0-18.0); LYMPHOCYTES # (AUTO) 2.4 (1.0-3.2); LYMPHOCYTES % 16.7 % (18.0-39.1); MEAN CORPUSCULAR HEMOGLOBIN 26.9 pg (28-32); MEAN CORPUSCULAR HGB CONC 33.3 g/dL (31-35); MEAN CORPUSCULAR VOLUME 80.8 fL (81-99); MONOCYTES # (AUTO) 1.2 (0.2-0.8); MONOCYTES % 8.7 % (4.4-11.3); NEUTROPHILS % 69.6 % (38.7-80.0); PLATELET COUNT 286 x10e3/uL (140-360); RED BLOOD COUNT 5.31 x10e6/uL (4.3-5.7); RED CELL DISTRIBUTION WIDTH 15.1 % (11.7-14.4)
[2020-08-19 06:05] LABS: ALANINE AMINOTRANSFERASE 65 IU/L (0-55); ALBUMIN 2.6 g/dL (3.5-5.0); ALBUMIN/GLOBULIN RATIO 0.6 (0.8-2.0); ALKALINE PHOSPHATASE 66 IU/L (40-150); ANION GAP 13.6 mmol/L (8-16); BLOOD UREA NITROGEN 8 mg/dL (7-26); BUN/CREATININE RATIO 9 (6-25); CALCIUM 8.7 mg/dL (8.4-10.2); CARBON DIOXIDE 26 mmol/L (22-29); CHLORIDE 103 mmol/L (98-107); CREATININE, SERUM 0.88 mg/dL (0.72-1.25); EST GLOMERULAR FILTRATION RATE > 60 ML/MIN (60-); GLUCOSE 103 mg/dL (74-118); POTASSIUM 3.6 mmol/L (3.5-5.1); SODIUM 139 mmol/L (136-145)
[2020-08-19] MEDS: SODIUM CHLORIDE 0.9% 1000ML 1,000 ML IV SCH ×3 (06:39→15:50)
--- NOTE | 2020-08-19 07:05 | NUR ---
RCD PT AT BED PT IS ALERT AND ORIENTED RESTING ON BED IV PATENT BED LOW AND LOCKED CALL LIGHT IN REACH
[2020-08-19] MEDS: GUAIFENESIN/CODEINE 10 ML CUP PO PRN ×2 (07:30→17:36)
[2020-08-19] MEDS: CEFEPIME 1GM/NS 0.9% 50 ML 50 ML IV SCH (07:30)
[2020-08-19] MEDS: PANTOPRAZOLE SOD 40 MG TABEC PO SCH (07:30)
[2020-08-19 08:00] VITALS: BP 139/82
--- NOTE | 2020-08-19 08:39 | Progress Note ---
DATE: SUBJECTIVE: The patient is seen and evaluated. Available labs and notes reviewed. Discussed with the nurse. The patient had a sweat last night, which was the first time. Other than that, no nausea, vomiting, fever, chills, chest pain, or shortness of breath on a review of systems. MEDICATIONS: Medications list reviewed. From ID point of view, the patient is on vancomycin IV and cefepime. LABORATORY STUDIES: COVID-19 PCR, HIV antibody and antigen, and influenza A and B are all negative. Urine Legionella antigen and mycoplasma pending. RANDALL screen is pending. White count improved to 14.31 with a hemoglobin of 14.3, platelets 286. Sodium 139, potassium 3.6, creatinine 0.88. MICROBIOLOGY: No new microbiology studies available. Sputum culture showed usual respiratory yoel with no organism seen. RADIOLOGY STUDIES: No new radiology studies available. PHYSICAL EXAMINATION: VITAL SIGNS: Temperature is 97.5, improved from 102.2 on admission, pulse 52, respirations 18, and blood pressure 110/59. GENERAL: Awake and alert. No acute distress. CV: S1, S2. CHEST: Equal expansion. Clear to auscultation. No acute distress. ABDOMEN: Soft, obese, nontender. HEENT: Moist. No pallor. No JVD. EXTREMITIES: Moves all. No edema. ASSESSMENT AND PLAN: 1. Abnormal blood culture - most likely contaminant. 2. Pneumonia/community-acquired. 3. Fever, resolved. 4. Chills, resolved. 5. Sweats for the first time last night. Continue to monitor. 6. Remains on vancomycin IV and cefepime, improving leukocytosis. Clinically, no acute distress. Please refer to Dr. Guillen's note on 08/17/2020. Please refer to chart for more information. Discussed with Dr. Guillen in details. Dictated by Job Liu PA-C (Al) Deacon Guillen MD /MODL /[id number]
[2020-08-19 08:45] VITALS: BP 139/82
[2020-08-19] MEDS: FAMOTIDINE 20 MG/2 ML VIAL IV SCH (09:00)
[2020-08-19] MEDS: VANCOMYCIN 1GM/NS 250 ML 250 ML IV SCH (11:22)
[2020-08-19 16:00] VITALS: BP 148/90
[2020-08-19 16:20] LABS: BASOPHILS # (AUTO) 0.1 (0.0-0.1); BASOPHILS % 0.8 % (0.0-1.0); EOSINOPHILS # (AUTO) 0.2 (0.0-0.4); EOSINOPHILS % 1.5 % (0.0-6.0); HEMATOCRIT 41.3 % (38.2-49.6); HEMOGLOBIN 13.8 g/dL (14.0-18.0); LYMPHOCYTES # (AUTO) 2.2 (1.0-3.2); LYMPHOCYTES % 16.5 % (18.0-39.1); MEAN CORPUSCULAR HEMOGLOBIN 26.8 pg (28-32); MEAN CORPUSCULAR HGB CONC 33.4 g/dL (31-35); MEAN CORPUSCULAR VOLUME 80.4 fL (81-99); MONOCYTES # (AUTO) 1.3 (0.2-0.8); MONOCYTES % 9.3 % (4.4-11.3); NEUTROPHILS # (AUTO) 9.3 (2.1-6.9); NEUTROPHILS % 68.3 % (38.7-80.0); PLATELET COUNT 283 x10e3/uL (140-360); RED BLOOD COUNT 5.14 x10e6/uL (4.3-5.7); RED CELL DISTRIBUTION WIDTH 15.2 % (11.7-14.4)
[2020-08-19] MEDS: ENOXAPARIN SOD INJ 40 MG/0.4 ML SYR SC SCH (17:00)
--- NOTE | 2020-08-19 17:00 | NUR ---
PAGED AND NOTIFIED THE LABS TO DR SAWYER ,GOT THE DISCHARGE ORDER
[2020-08-19] MEDS ORDERED: LEVOFLOXACIN250 MG PO (17:13)
--- NOTE | 2020-08-19 18:10 | NUR ---
PATIENT WENT HOME IN SAFE CONDITION WITH HIS FRIEND
== END 2020-08-19 18:11 | disposition home or self-care (01) | DRG 871 ==
LOC: FSED 18:10 → ERHOLD 20:23 → MED/SURG2 21:56
PROVIDERS: ADMIT Internal Medicine; ATTEND Internal Medicine
DX: A41.9 Sepsis, unspecified organism (principal); J15.9 Unspecified bacterial pneumonia; E86.0 Dehydration; Z20.828 Contact with and (suspected) exposure to other viral communicable diseases; F17.210 Nicotine dependence, cigarettes, uncomplicated; J98.4 Other disorders of lung
CPT/HCPCS: 36415; 71045; 71275; 80048; 80053; 80061; 80202; 81001; 81003; 82550; 82553; 83605; 83735; 84443; 84484; 85025; 85651; 86021; 86039; 86160; 86738; 87040; 87070; 87071; 87116; 87205; 87206; 87390; 87400; 87449; 87535; 93005; 93306; 96361; 99284; G0433; G0435; J0456; J0692; J1650; J2930; J3370; J7030; J7040; Q9967; U0002